=== PATIENT | female | born 2000 | race Caucasian/White ===

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

== ENCOUNTER 2018-04-29 13:13 | Emergency (ER) | payer OTHER ==
[2018-04-29 13:19] VITALS: BP 136/83; TEMP 99; BMI 17.7
--- NOTE | 2018-04-29 13:51 | PDOC ---
History of Present Illness - General Chief Complaint: Cold Symptoms Stated Complaint: NAUSEA/VOMITING Time Seen by Provider: 04/29/18 13:19 History Source: Patient - History of Present Illness Initial Comments: 04/29/18 13:46 17 year old female with nasal congestion and facial pain occasionally spitting dark muscous. denies fever/ chills. reports URI symptoms for the last 3 weeks. Past History - Past Medical History Allergies/Adverse Reactions: Allergies Allergy/AdvReac Type Severity Reaction Status Date / Time No Known Allergies Allergy Verified 05/26/17 20:56 Home Medications: Ambulatory Orders Amoxicillin/Potassium Clav [Augmentin 875-125 Tablet] 1 each PO BID #14 tablet 04/29/18 Fluticasone Prop 0.05% Nasal [Flonase -] 1 - 2 spray NS BID #1 spray.pump Asthma: No COPD: No HTN: No Hypercholesterolemia: No Kidney Stones: No Liver Disease: No Psychiatric Problems: No Seizures: No Thyroid Disease: No Lung CA: No - Surgical History Abdominal Surgery: No Appendectomy: No Cardiac Surgery: No Cholecystectomy: No Gastric Stapling: No GI Surgery: No - Immunization History Immunization Up to Date: Yes - Suicide/Smoking/Psychosocial Hx Smoking Status: No Smoking History: Never smoked Number of Cigarettes Smoked Daily: 0 Hx Alcohol Use: No Drug/Substance Use Hx: No Review of Systems - Review of Systems Able to Perform ROS?: Yes Is the patient limited Uzbek proficient: No *Physical Exam - Vital Signs Last Vital Signs Temp Pulse Resp BP Pulse Ox 99.0 F 110 H 16 136/83 99 04/29/18 13:16 04/29/18 13:16 04/29/18 13:16 04/29/18 13:16 04/29/18 13:16 - Physical Exam General Appearance: Yes: Appropriately Dressed HEENT: positive: Other (+ maxillary sinus tenderness) Moderate Sedation - Procedure Monitoring Vital Signs: Procedure Monitoring Vital Signs Temperature 99.0 F 04/29/18 13:16 Pulse Rate 110 H 04/29/18 13:16 Respiratory Rate 16 04/29/18 13:16 Blood Pressure 136/83 04/29/18 13:16 O2 Sat by Pulse Oximetry (%) 99 04/29/18 13:16 Medical Decision Making - Medical Decision Making 04/29/18 14:00 HR: 99, o2 sat 100% resp 20 *DC/Admit/Observation/Transfer Diagnosis at time of Disposition: Sinusitis Qualifiers: Sinusitis location: maxillary Chronicity: acute Recurrence: non-recurrent Qualified Code(s): J01.00 - Acute maxillary sinusitis, unspecified - Discharge Dispostion Disposition: HOME - Prescriptions Prescriptions: Amoxicillin/Potassium Clav [Augmentin 875-125 Tablet] 1 each PO BID #14 tablet Fluticasone Prop 0.05% Nasal [Flonase -] 1 - 2 spray NS BID #1 spray.pump - Referrals Referrals: Reji Morel MD [Staff Physician] - - Patient Instructions Printed Discharge Instructions: Sinusitis Additional Instructions: drink plenty of fluids take ibuprofen for pain take amoxicillin as flonase as prescribed. follow up with your doctor as soon as possible. - Post Discharge Activity Forms/Work/School Notes: Back to Work
[2018-04-29] MEDS ORDERED: IBUPROFEN 600 MG TABLET (FP) PO ONE ×2 (13:52→13:54)
[2018-04-29 14:00] VITALS: PULSE 99
== END 2018-04-29 14:14 | disposition home or self-care (01) ==
LOC: JERFT 13:13
DX: R09.3 Abnormal sputum (principal); J01.00 Acute maxillary sinusitis, unspecified
CPT/HCPCS: 99281-25

== ENCOUNTER 2018-05-03 14:30 | Emergency (ER) | payer OTHER ==
[2018-05-03 14:54] VITALS: BP 125/84; PULSE 118; TEMP 98; BMI 16.9
[2018-05-03] MEDS ORDERED: ONDANSETRON *ODT* 4 MG TABLET SL ONE (15:09)
[2018-05-03] MEDS ORDERED: ONDANSETRON *ODT* 4 MG TABLET ONE (15:12)
--- NOTE | 2018-05-03 15:16 | PDOC ---
History of Present Illness - General Chief Complaint: Cold Symptoms Stated Complaint: REVIST COLD SYMPTOMS Time Seen by Provider: 05/03/18 14:57 History Source: Patient Exam Limitations: No Limitations - History of Present Illness Initial Comments: 05/03/18 15:10 HISTORY OF PRESENT ILLNESS: This is a 17-year-old girl denies medical history presents emergency department for evaluation of myalgias, sore throat, nasal congestion, sinus tenderness and posttussive vomiting for the past 10-14 days. Patient was seen and evaluated in this emergency Department and given Augmentin for sinusitis. Patient reports symptoms have not improved while taking the antibiotics and is requesting re-evaluation. No recent travel or sick contacts. PAST MEDICAL HISTORY: Denies past medical history SURGICAL HISTORY: Denies ALLERGIES: No known drug allergies REVIEW OF SYSTEMS General/Constitutional: +fever. Denies weakness, weight change. HEENT: Denies change in vision. Denies ear pain or discharge. +sore throat. Cardiovascular: Denies chest pain or shortness of breath. Respiratory: Moist productive cough. Denies wheezing, or hemoptysis. Gastrointestinal: Denies nausea, vomiting, diarrhea or constipation. Denies rectal bleeding. Genitourinary: Denies dysuria, frequency, or change in urination. Musculoskeletal: +myalgias. Denies neck or back pain. Skin and breasts: Denies rash or easy bruising. Neurologic: Denies headache, vertigo, loss of consciousness, or loss of sensation. Psychiatric: Denies depression or anxiety. Endocrine: Denies increased thirst. Denies abnormal weight change. Hematologic/Lymphatic: Denies anemia, easy bleeding, or history of blood clots. Allergic/Immunologic: Denies hives or skin allergy. Denies latex allergy. PHYSICAL EXAM General Appearance: Well-appearing, appropriately dressed. No apparent distress , no intoxication. HEENT: EOMI, PERRLA, normal voice, TMs retracted bilaterally. No conjunctival pallor. No photophobia, scleral icterus. Oropharynx erythematous without lesions or exudate. Cobblestoning noted in the posterior. No nasal discharge present. TTP over maxillary sinuses. Neck: Supple. Trachea midline. No tenderness, rigidity, carotid bruit, stridor , or thyromegaly. Nontender anterior cervical lymphadenopathy present. Respiratory/Chest: Lungs CTAB. No shortness of breath, chest tenderness, respiratory distress, accessory muscle use. No crackles, rales, rhonchi, stridor , wheezing, dullness Cardiovascular: RRR. S1, S2. No JVD, murmur, bradycardia, tachycardia. Vascular Pulses: Dorsalis-Pedis (R): 2+, Dorsalis-Pedis (L): 2+ Gastrointestinal/Abdominal: Normal bowel sounds. Abdomen soft, non-distended. No tenderness or rebound tenderness. No organomegaly, pulsatile mass, guarding, hernia, hepatomegaly, splenomegaly. Musculoskeletal/Extremities: Normal inspection. FROM of all extremities, normal capillary refill. Pelvis Stable. No CVA tenderness. No tenderness to extremities, pedal edema, swelling, erythema or deformity. Integumentary: Appropriate color, dry, warm. No cyanosis, erythema, jaundice or rash Neurologic: milk hauler II-XII intact. Fully oriented, alert. Appropriate mood/affect. Motor strength 5/5. No appreciable EOM palsy, facial droop or sensory deficit. Past History - Past Medical History Allergies/Adverse Reactions: Allergies Allergy/AdvReac Type Severity Reaction Status Date / Time No Known Allergies Allergy Verified 05/03/18 14:50 Home Medications: Ambulatory Orders Ondansetron [Zofran Odt -] 4 mg SL TID #21 od.tablet 05/03/18 Asthma: No COPD: No HTN: No Hypercholesterolemia: No Kidney Stones: No Liver Disease: No Psychiatric Problems: No Seizures: No Thyroid Disease: No Lung CA: No - Surgical History Abdominal Surgery: No Appendectomy: No Cardiac Surgery: No Cholecystectomy: No Gastric Stapling: No GI Surgery: No - Immunization History Immunization Up to Date: Yes - Suicide/Smoking/Psychosocial Hx Smoking Status: No Smoking History: Never smoked Number of Cigarettes Smoked Daily: 0 Information on smoking cessation initiated: No Hx Alcohol Use: No Drug/Substance Use Hx: No *Physical Exam - Vital Signs Last Vital Signs Temp Pulse Resp BP Pulse Ox 98 F 118 H 20 125/84 100 05/03/18 14:51 05/03/18 14:51 05/03/18 14:51 05/03/18 14:51 05/03/18 14:51 Moderate Sedation - Procedure Monitoring Vital Signs: Procedure Monitoring Vital Signs Temperature 98 F 05/03/18 14:51 Pulse Rate 118 H 05/03/18 14:51 Respiratory Rate 20 05/03/18 14:51 Blood Pressure 125/84 05/03/18 14:51 O2 Sat by Pulse Oximetry (%) 100 05/03/18 14:51 Medical Decision Making - Medical Decision Making 05/03/18 15:30 A/P: 17-year-old girl with viral symptoms Zofran for posttussive vomiting PO trial reassess 05/03/18 16:08 Tolerating PO's. I discussed the physical exam findings, ancillary test results and final diagnoses with the patient. I answered all of the patient's questions. The patient was satisfied with the care received and felt comfortable with the discharge plan and treatment plan. The patient will call their primary care physician within 24 hours to arrange follow-up and will return to the Emergency Department with any new, persistent or worsening symptoms. *DC/Admit/Observation/Transfer Diagnosis at time of Disposition: Upper respiratory infection Qualifiers: URI type: unspecified URI Qualified Code(s): J06.9 - Acute upper respiratory infection, unspecified Sinusitis Qualifiers: Sinusitis location: unspecified location Chronicity: acute Recurrence: not specified as recurrent Qualified Code(s): J01.90 - Acute sinusitis, unspecified - Discharge Dispostion Disposition: HOME Condition at time of disposition: Stable Decision to Admit order: No - Prescriptions Prescriptions: Ondansetron [Zofran Odt -] 4 mg SL TID #21 od.tablet - Referrals Referrals: Clinton Groves [Primary Care Provider] - - Patient Instructions Printed Discharge Instructions: Amoxicillin Does Not Appear Effective for Acute Maxillary Sinusitis, DI for Viral Upper Respiratory Infection -- Adult Additional Instructions: Stop taking antibiotics. Rest, drink lots of fluids: Teas, water, soups, Pedialyte Saltwater gargles Steamy showers/seem to face break up mucus Avoid contact with others until fevers and cough resolved Lots of handwashing and good hygiene Continue [id number] medications for symptomatic relief Tylenol or Motrin for fever and pain Followup with private physician in one to 2 days as needed Return to emergency department for worsened symptoms, fevers, dehydration - Post Discharge Activity
== END 2018-05-03 16:13 | disposition home or self-care (01) ==
LOC: JERFT 14:30
DX: J06.9 Acute upper respiratory infection, unspecified (principal); B97.89 Other viral agents as the cause of diseases classified elsewhere
CPT/HCPCS: 99281-25; Q0162

== ENCOUNTER 2018-12-05 17:56 | Emergency (ER) | payer OTHER | END 2018-12-05 19:08 | disposition home or self-care (01) | LOC: JERFT 17:56 ==

== ENCOUNTER 2019-05-04 16:27 | Emergency (ER) | payer OTHER ==
[2019-05-04 16:38] VITALS: BMI 17.9
[2019-05-04] MEDS ORDERED: hydrOXYzine PAMOATE 25 MG CAPSULE (FP) PO ONE ×2 (17:12→17:15)
--- NOTE | 2019-05-04 17:32 | PDOC ---
History of Present Illness - General Chief Complaint: Laceration Stated Complaint: LAC LT HAND Time Seen by Provider: 05/04/19 16:58 History Source: Patient Exam Limitations: No Limitations Past History - Travel Traveled outside of the country in the last 30 days: No Close contact w/someone who was outside of country & ill: No - Past Medical History Allergies/Adverse Reactions: Allergies Allergy/AdvReac Type Severity Reaction Status Date / Time No Known Allergies Allergy Verified 05/04/19 16:39 Home Medications: Ambulatory Orders Ipratropium [place] 2 spray NS BID PRN #1 spray 12/05/18 Montelukast Na [Singulair -] 10 mg PO HS #7 tablet 12/05/18 Asthma: No COPD: No HTN: No Hypercholesterolemia: No Kidney Stones: No Liver Disease: No Psychiatric Problems: No Seizures: No Thyroid Disease: No Lung CA: No - Surgical History Abdominal Surgery: No Appendectomy: No Cardiac Surgery: No Cholecystectomy: No Gastric Stapling: No GI Surgery: No - Immunization History Immunization Up to Date: Yes - Psycho Social/Smoking Cessation Hx Smoking Status: No Smoking History: Never smoked Number of Cigarettes Smoked Daily: 0 Hx Alcohol Use: No Drug/Substance Use Hx: No Review of Systems - Review of Systems Able to Perform ROS?: Yes Comments:: 05/04/19 18:50 CONSTITUTIONAL: Absent: fever, chills, diaphoresis, generalized weakness, malaise, loss of appetite MUSCULOSKELETAL: Present: finger pain Absent: myalgia, arthralgia, joint swelling SKIN: Present: L second finger laceration Absent: rash, itching, pallor HEMATOLOGIC/IMMUNOLOGIC: Absent: easy bleeding, easy bruising, lymphadenopathy, frequent infections ENDOCRINE: Absent: unexplained weight gain, unexplained weight loss, heat intolerance, cold intolerance NEUROLOGIC: Absent: headache, focal weakness or paresthesias, dizziness, unsteady gait, seizure, mental status changes, bladder or bowel incontinence PSYCHIATRIC: Absent: anxiety, depression, suicidal or homicidal ideation, hallucinations. Is the patient limited Kyrgyz proficient: No *Physical Exam - Vital Signs Last Vital Signs Temp Pulse Resp BP Pulse Ox 98 F 90 18 141/98 100 05/04/19 16:36 05/04/19 16:36 05/04/19 16:36 05/04/19 16:36 05/04/19 16:36 - Physical Exam 05/04/19 18:58 GENERAL: The patient is awake, alert, and fully oriented, in no acute distress. HEAD: Normal with no signs of trauma. EYES: Pupils equal, round and reactive to light, extraocular movements intact, sclera anicteric, conjunctiva clear. EXTREMITIES: Patient unable to extend the left second DIP secondary to laceration. Patient able to flex the PIP. Normal range of motion at all other joints no edema. NEUROLOGICAL: Normal speech, normal gait. PSYCH: Normal mood, normal affect. SKIN: 2 cm laceration macerated open fracture over the volar aspect of the left second digit. warm, Dry, normal turgor, no rashes or lesions noted. ED Treatment Course - RADIOLOGY Radiology Studies Ordered: Category Date Time Status HAND- LEFT [RAD] Stat Radiology 05/04/19 17:08 Ordered - Medications Given in the ED: ED Medications Discontinued Medications Generic Name Dose Route Start Last Admin Trade Name Freq PRN Reason Stop Dose Admin Hydroxyzine Pamoate 25 mg 05/04/19 17:12 05/04/19 17:23 Vistaril - PO 05/04/19 17:13 25 mg ONCE ONE Administration Medical Decision Making - Medical Decision Making 05/04/19 19:00 The patient is a 18-year-old female no past medical history who presents to the ER today for left second finger pain/laceration. She states that she was making brownies when she got her finger caught in the honey grader and blender. She states that she turned the honey grader and blender off and saw her finger was badly cut so she came to the ER for evaluation. She states she cannot feel her fingernail and she cannot move the tip of her left finger. The patient is left-hand dominant A/P: Partial finger amputation, flexor tendon rupture On exam patient unable to bend the DIP of the left second digit. Macerated 2 cm laceration over the DIP. X-ray shows comminuted fracture of the left second distal and middle phalanges over the DIP joint Given the extent of the injury on the dominant hand with possible flexor tendon rupture, open fracture will transfer to [facility] for hand specialty as I anticipate patient will need surgery to repair the injury. Patient accepted to [facility], Dr. Mendoza hand specialty 1 g of Ancef given. Discharge - Discharge Information Problems reviewed: Yes Clinical Impression/Diagnosis: Open finger fracture Qualifiers: Encounter type: initial encounter Finger: index finger Phalanx: distal Fracture alignment: displaced Laterality: left Qualified Code(s): S62.631B - Displaced fracture of distal phalanx of left index finger, initial encounter for open fracture Rupture of flexor tendon of left hand Qualifiers: Encounter type: initial encounter Qualified Code(s): S66.812A - Strain of other specified muscles, fascia and tendons at wrist and hand level, left hand, initial encounter Condition: Stable Disposition: TRANSFER ACUTE CARE/OTHER HOSP - Follow up/Referral Referrals: Telma Jaramillo MD [Primary Care Provider] - - Patient Discharge Instructions - Post Discharge Activity - Transfer to Acute Care Facility Receiving Facility Name: [facility] Accepting Physician:: Dr. Rios
[2019-05-04] MEDS ORDERED: CEFAZOLIN 1 GM/D5W 1 GM/50 ML BAG IVPB ONE (17:52)
[2019-05-04] MEDS ORDERED: CEFAZOLIN 1 GM/D5W 1 GM/50 ML BAG ONE (18:00)
[2019-05-04 18:51] VITALS: BP 127/86; PULSE 84; TEMP 98.4
== END 2019-05-04 19:03 | disposition short-term general hospital (02) ==
LOC: JERFT 16:27
DX: S62.631B Displaced fracture of distal phalanx of left index finger, initial encounter for open fracture (principal); S66.812A Strain of other specified muscles, fascia and tendons at wrist and hand level, left hand, initial encounter; W29.0XXA Contact with powered kitchen appliance, initial encounter; Y93.G1 Activity, food preparation and clean up; Y92.030 Kitchen in apartment as the place of occurrence of the external cause; Y99.8 Other external cause status
CPT/HCPCS: 73130-TC-LT-FY; 96365; 99282-25